=== PATIENT | male | born 1965 | race Caucasian/White ===

== ENCOUNTER 2017-07-14 19:25 | Emergency (ER) | payer OTHER ==
--- NOTE | 2017-07-14 21:21 | RAD REPORT ---
EXAM DESCRIPTION: CT - Head Brain Wo Cont - 07/14/2017 9:03 pm CLINICAL HISTORY: Dizziness, headache COMPARISON: None. TECHNIQUE: Axial 5 mm thick images of the head were obtained without IV contrast. All CT scans are performed using dose optimization technique as appropriate and may include automated exposure control or mA/KV adjustment according to patient size. FINDINGS: No intracranial hemorrhage, mass, edema or shift of mid-line structures. No abnormal extra -axial fluid collections. Ventricles are normal. Mastoid air cells and visualized portions of the paranasal sinuses are clear. No acute bony findings. IMPRESSION: Negative non-contrast CT head examination.
[2017-07-14] MEDS ORDERED: DIPHENHYDRAMINE 50 MG/ML VIAL ONE (21:23)
--- NOTE | 2017-07-14 21:24 | RAD REPORT ---
EXAM DESCRIPTION: RAD - Chest Single View - 07/14/2017 9:10 pm CLINICAL HISTORY: Weakness, declining state COMPARISON: None. TECHNIQUE: AP portable chest image was obtained 8 hours . FINDINGS: Lungs are clear. Heart and vasculature are normal. No measurable pleural effusion and no p neumothorax. No gross bony abnormality seen. No acute aortic findings suspected. IMPRESSION: No acute cardiopulmonary process.
[2017-07-14 21:30] LABS: Absolute Lymphocytes (CBC) 3.9 K/uL (0.7-4.9); Absolute Monocytes 1.1 K/uL (0.1-1.3); Absolute Neutrophil 6.3 K/uL (1.8-8.0); Basophils % 1.2 % (0-1.3); Eosinophils % 1.4 % (0-4.4); Hematocrit 43.6 % (39.6-49.0); Lymphocytes % 33.4 % (15.3-44.8); MCH 26.2 pg (27.0-35.0); MCV 77.7 fL (80-100); MPV 8.6 fL (7.6-11.3); Monocytes % 9.4 % (3.3-12.3); RBC Red Blood Cell Count 5.62 M/uL (4.33-5.43)
[2017-07-14 21:42] LABS: Bicarbonate 28 mEq/L (21-31); Glucose Level 108 mg/dL (65-120); Potassium 3.6 mEq/L (3.6-5.0); Sodium Level 139 mEq/L (135-145)
[2017-07-14 21:44] LABS: Protime INR 1.04
[2017-07-14 21:48] LABS: ALT/SGPT 29 IU/L (10-60); AST/SGOT 28 IU/L (10-42); Alkaline Phosphatase 62 IU/L (42-121); BUN Blood Urea Nitrogen 17 mg/dL (6-20); Bilirubin Direct < 0.1 mg/dL (0-0.2); Bilirubin Total 0.5 mg/dL (0.3-1.2); Magnesium 2.3 mg/dL (1.8-2.5); Protein, Total 7.3 g/dL (6.0-8.3)
--- NOTE | 2017-07-14 22:53 | ER ---
Nurse's Notes [facility] Name: Ernie Whitlock Age: 52 yrs Sex: Male : 1965 Arrival Date: 07/14/2017 Time: 19:30 Bed 14 Private MD: Diagnosis: Benign paroxysmal vertigo, unspecified ear Presentation: 07/14 20:28 Presenting complaint: Patient states: dizziness for the past 3 days that has been aj1 getting progressively worse. "I feel like everything is spinning like when you've had too much to drink,but I haven't been drinking.: Reports vertigo, nausea, and headache. Denies hitting head, syncope, vomiting, blurred vision, numbness, and tingling. Denies CP. Transition of care: patient was not received from another setting of care. Onset of symptoms was July 10, 2017. Initial Sepsis Screen: Does the patient meet any 2 criteria? No. Patient's initial sepsis screen is negative. Does the patient have a suspected source of infection? No. Patient's initial sepsis screen is negative. Care prior to arrival: None. 20:28 Method Of Arrival: Ambulatory aj1 20:28 Acuity: JOHNNY 3 aj1 Triage Assessment: 20:31 General: Appears in no apparent distress. uncomfortable, Behavior is calm, cooperative, aj1 appropriate for age. Pain: Denies pain. Historical: - Allergies: 20:31 No Known Allergies; aj1 - Home Meds: 20:31 None [Active]; aj1 - PMHx: 20:31 GERD; aj1 - PSHx: 20:31 None; aj1 - Immunization history:: Adult Immunizations Flu vaccine is not up to date. - Social history:: Smoking status: Patient/guardian denies using tobacco. Screenin:33 Abuse screen: Denies threats or abuse. Denies injuries from another. Nutritional aj1 screening: No deficits noted. Tuberculosis screening: No symptoms or risk factors identified. 23:21 Fall Risk None identified. bb Assessment: 20:33 General: Appears in no apparent distress. uncomfortable, Behavior is calm, cooperative, aj1 appropriate for age. Pain: Denies pain. Neuro: Level of Consciousness is awake, alert, obeys commands, Oriented to person, place, time, situation, Manpower Development Manager are equal bilaterally Moves all extremities. Full function Gait is steady, Speech is normal, Facial symmetry appears normal, Pupils are PERRLA, Intact Reports dizziness, headache nausea. Denies weakness blurred vision paresthesias numbness photophobia. Cardiovascular: Patient's skin is warm and dry. Respiratory: Airway is patent Respiratory effort is even, unlabored, Respiratory pattern is regular, symmetrical, Breath sounds are clear bilaterally. GI: No signs and/or symptoms were reported involving the gastrointestinal system. : No signs and/or symptoms were reported regarding the genitourinary system. EENT: No signs and/or symptoms were reported regarding the EENT system. Derm: No signs and/or symptoms reported regarding the dermatologic system. Musculoskeletal: No signs and/or symptoms reported regarding the musculoskeletal system. Circulation, motion, and sensation intact. 21:51 Reassessment: Patient appears in no apparent distress at this time. No changes from aj1 previously documented assessment. Patient and/or family updated on plan of care and expected duration. Pain level reassessed. Patient is alert, oriented x 3, equal unlabored respirations, skin warm/dry/pink. 23:19 Reassessment: Patient and/or family updated on plan of care and expected duration. Pain bb level reassessed. Patient is alert, oriented x 3, equal unlabored respirations, skin warm/dry/pink. pt states dizziness has improved, verbalized understanding of and agrees to plan of care discharge instructions given pt ambulated with steady gait to exit accompanied by spouse. Vital Signs: 20:31 BP 123 / 75; Pulse 78; Resp 20; Temp 97.6(O); Pulse Ox 96% on R/A; Weight 108.86 kg; aj1 Height 5 ft. 11 in. (180.34 cm); Pain 0/10; 21:51 BP 122 / 93; Pulse 65; Resp 12; Pulse Ox 99% on R/A; aj1 23:20 BP 127 / 76; Pulse 68; Resp 18 S; Temp 97.8(O); Pulse Ox 96% on R/A; Pain 0/10; bb 20:31 Body Mass Index 33.47 (108.86 kg, 180.34 cm) aj1 ED Course: 19:30 Patient arrived in ED. am2 20:28 Afshan Briones, RN is Primary Nurse. aj1 20:31 Triage completed. aj1 20:31 Arm band placed on. aj1 20:33 Patient has correct armband on for positive identification. aj1 20:33 No provider procedures requiring assistance completed. aj1 20:34 Vinh Fabian MD is Attending Physician. 21:[address] via wheelchair. ca 21:03 CT Head Brain wo Cont In Process Unspecified. EDMS 21:08 X-ray completed. Patient tolerated procedure well. Patient moved back from radiology. ag1 21:09 XRAY Chest (1 view) In Process Unspecified. EDMS 22:52 Brunilda Mendez MD is Referral Physician. gs 22:52 Matthias Cevallos MD is Referral Physician. gs 23:21 IV discontinued, intact, bleeding controlled, No redness/swelling at site. Pressure bb dressing applied. Administered Medications: 21:38 Drug: Benadryl 25 mg Route: IVP; Site: right antecubital; aj1 23:19 Follow up: Response: Marked relief of symptoms bb Outcome: 22:53 Discharge ordered by MD. 23:21 Discharged to home ambulatory, with family. bb 23:21 Condition: stable 23:21 Discharge instructions given to patient, family, Instructed on discharge instructions, follow up and referral plans. no driving heavy equipment, medication usage, Demonstrated understanding of instructions, follow-up care, medications, Prescriptions given X 1. 23:22 Patient left the ED. bb Signatures: Dispatcher [employer] Afshan John, RN ELEANOR aj1 Rosemary Kasper RN RN bb [place], Ashley ag1 Danielito Stout Amanda am2 Vinh Fabian MD MD
--- NOTE | 2017-07-14 22:53 | EDPHYS ---
Physician Documentation [facility] Name: Ernie Whitlock Age: 52 yrs Sex: Male : 1965 Arrival Date: 07/14/2017 Time: 19:30 Bed 14 Private MD: ED Physician Vinh Fabian HPI: 07/14 22:43 This 52 yrs old Male presents to ER via Ambulatory with complaints of gs Dizziness. 22:43 The patient presents with dizziness, sense of spinning. Onset: The symptoms/episode gs began/occurred 3 day(s) ago, and became persistent. Context: occurred at home. Modifying factors: the symptoms are aggravated by movement of head, standing up, changing position. Associated signs and symptoms: Pertinent positives: nausea. Severity of symptoms: At their worst the symptoms were moderate in the emergency department the symptoms are unchanged. The patient has not experienced similar symptoms in the past. Historical: - Allergies: 20:31 No Known Allergies; aj1 - Home Meds: 20:31 None [Active]; aj1 - PMHx: 20:31 GERD; aj1 - PSHx: 20:31 None; aj1 - Immunization history:: Adult Immunizations Flu vaccine is not up to date. - Social history:: Smoking status: Patient/guardian denies using tobacco. ROS: 22:43 All other systems are negative. gs Exam: 22:43 Head/Face: Normocephalic, atraumatic. Eyes: Pupils equal round and reactive to light, gs extra-ocular motions intact. Lids and lashes normal. Conjunctiva and sclera are non-icteric and not injected. Cornea within normal limits. Periorbital areas with no swelling, redness, or edema. ENT: Nares patent. No nasal discharge, no septal abnormalities noted. Tympanic membranes are normal and external auditory canals are clear. Oropharynx with no redness, swelling, or masses, exudates, or evidence of obstruction, uvula midline. Mucous membranes moist. Neck: Trachea midline, no thyromegaly or masses palpated, and no cervical lymphadenopathy. Supple, full range of motion without nuchal rigidity, or vertebral point tenderness. No Meningismus. Chest/axilla: Normal chest wall appearance and motion. Nontender with no deformity. No lesions are appreciated. Cardiovascular: Regular rate and rhythm with a normal S1 and S2. No gallops, murmurs, or rubs. Normal PMI, no JVD. No pulse deficits. Respiratory: Lungs have equal breath sounds bilaterally, clear to auscultation and percussion. No rales, rhonchi or wheezes noted. No increased work of breathing, no retractions or nasal flaring. Abdomen/GI: Soft, non-tender, with normal bowel sounds. No distension or tympany. No guarding or rebound. No evidence of tenderness throughout. Back: No spinal tenderness. No costovertebral tenderness. Full range of motion. Skin: Warm, dry with normal turgor. Normal color with no rashes, no lesions, and no evidence of cellulitis. MS/ Extremity: Pulses equal, no cyanosis. Neurovascular intact. Full, normal range of motion. 22:43 Constitutional: The patient appears alert, awake. 22:43 Constitutional: The patient appears in no acute distress. 22:43 ECG was reviewed by the Attending Physician. 22:43 Neuro: Orientation: is normal, Mentation: is normal, Memory: is normal, Cranial nerves: CN II- XII are normal as tested, Nystagmus is absent. Cerebellar function: is grossly normal, normal finger to nose testing, heel to gilmore testing is normal, Motor: Sensation: is normal, Gait: is steady, without difficulty. Vital Signs: 20:31 BP 123 / 75; Pulse 78; Resp 20; Temp 97.6(O); Pulse Ox 96% on R/A; Weight 108.86 kg; aj1 Height 5 ft. 11 in. (180.34 cm); Pain 0/10; 21:51 BP 122 / 93; Pulse 65; Resp 12; Pulse Ox 99% on R/A; aj1 23:20 BP 127 / 76; Pulse 68; Resp 18 S; Temp 97.8(O); Pulse Ox 96% on R/A; Pain 0/10; bb 20:31 Body Mass Index 33.47 (108.86 kg, 180.34 cm) aj1 MDM: 20:49 Patient medically screened. gs 22:43 Differential diagnosis: cardiac arrhythmia, generalized weakness, vertigo. Data gs reviewed: vital signs, nurses notes, and as a result, I will discharge patient. Response to treatment: the patient's symptoms have mildly improved after treatment, and as a result, I will discharge patient. 07/14 20:51 Order name: Basic Metabolic Panel; Complete Time: :54 07/14 20:51 Order name: CBC with Diff; Complete Time: :54 07/14 20:51 Order name: LFT's; Complete Time: :54 07/14 20:51 Order name: Magnesium; Complete Time: 21:54 07/14 20:51 Order name: PT-INR; Complete Time: :54 07/14 20:51 Order name: Troponin (emerg Dept Use Only); Complete Time: :54 07/14 20:51 Order name: XRAY Chest (1 view); Complete Time: :54 07/14 20:51 Order name: EKG; Complete Time: :52 07/14 20:51 Order name: Cardiac monitoring; Complete Time: 21: 07/14 20:51 Order name: EKG - Nurse/Tech; Complete Time: 22:11 07/14 20:51 Order name: IV Saline Lock; Complete Time: 21: 07/14 20:51 Order name: Labs collected and sent; Complete Time: 21: 07/14 20:51 Order name: CT Head Brain wo Cont; Complete Time: :54 07/14 20:51 Order name: O2 Per Protocol; Complete Time: 21: 07/14 20:51 Order name: O2 Sat Monitoring; Complete Time: 21:07 gs EC:43 Rate is 71 beats/min. Rhythm is regular. TN interval is normal. QRS interval is normal. gs T waves are Normal. No ST changes noted. Clinical impression: Normal ECG. Interpreted by me. Administered Medications: 21:38 Drug: Benadryl 25 mg Route: IVP; Site: right antecubital; aj1 23:19 Follow up: Response: Marked relief of symptoms bb Disposition: 07/14/17 22:53 Discharged to Home. Impression: Benign paroxysmal vertigo, unspecified ear. - Condition is Stable. - Discharge Instructions: Benign Positional Vertigo, Dizziness. - Prescriptions for Valium 5 mg Oral Tablet - take 1 tablet by ORAL route every 8 hours As needed; 20 tablet. - SBAR form, Medication Reconciliation Form, Thank You Letter, Antibiotic Education, Prescription Opioid Use form. - Follow up: Brunilda Mnedez MD; When: 2 - 3 days; Reason: Re-evaluation by your physician. Follow up: Matthias Cevallos MD; When: 2 - 3 days; Reason: Re-evaluation by your physician. Signatures: Dispatcher [employer] Afshan John RN RN aj1 Rosemary Kasper RN RN bb Vinh Fabian MD MD gs
--- NOTE | 2017-07-15 09:15 | EKG ---
Test Date: 2017-07-14 Test Time: 21:23:26 Coal Sampler: HERRERA MEASUREMENT RESULTS: Intervals: Rate: 71 [place]: 166 QRSD: 96 QT: 364 QTc: 395 [place]: P: 46 WV: 166 QRS: 0 T: 24 INTERPRETIVE STATEMENTS: Normal sinus rhythm Normal ECG No previous ECG available for comparison Electronically Signed On 07-15-17 09:13:51 CDT by Brady Velásquez
== END 2017-07-14 23:22 | disposition home or self-care (01) ==
LOC: ER 19:25
DX: H81.10 Benign paroxysmal vertigo, unspecified ear (principal)
CPT/HCPCS: 36415; 70450; 71045; 80048; 80076; 83735; 84484; 85025; 85610; 93005; 96374; 99284

== ENCOUNTER 2017-08-20 07:51 | Day surgery (SDC) | payer OTHER ==
--- OUTSIDE RECORDS SUMMARY | 2017-08-20 07:52 | XMS REPORT ---
:1965 Author Organization [employer] Care Team Providers Name Role Phone Gwen Messerh Provider Role Unavailable Allergies, Adverse Reactions, Alerts Substance Reaction Event Type N.K.D.A. Info Not Available Non Drug Allergy Problems Problem Type Condition Code Onset Dates Condition Status Problem Mild intermittent asthma, J45.20 Active unspecified whether complicated Assessment Encounter for preventative adult Z00.00 Active health care examination Problem Biliary calculus of other site K80.80 Active without obstruction Assessment Screening for colon cancer Z12.11 Active Medications No Known Medications Results No Known Results Summary Purpose [employer] Submission
--- OUTSIDE RECORDS SUMMARY | 2017-08-20 07:52 | XMS REPORT ---
:1965 Author Organization [employer] Care Team Providers Name Role Phone ChesterSundar Provider Role Unavailable Allergies, Adverse Reactions, Alerts Substance Reaction Event Type N.K.D.A. Info Not Available Non Drug Allergy Problems Problem Type Condition Code Onset Dates Condition Status Problem Mild intermittent asthma, J45.20 Active unspecified whether complicated Assessment Encounter for screening colonoscopy Z12.11 Active Problem Biliary calculus of other site K80.80 Active without obstruction Medications Medication Code System Code Instructions Start Date End Date Status Dosage Diazepam [facility] [id number] 5 MG Rectal Active not defined -60 Results No Known Results Summary Purpose [employer] Submission
[2017-08-20] MEDS ORDERED: Ringers Lactate 1,000 ML IV ONE (08:23)
[2017-08-20] MEDS ORDERED: PROPOFOL 200 MG/20 ML VIAL IV ONE (10:13)
--- NOTE | 2017-08-20 11:00 | ENDO RPT ---
[address], [address] COLONOSCOPY PROCEDURE REPORT EXAM DATE: 08/20/2017 PATIENT NAME: Ernie Whitlock MR #: [id number] BIRTHDATE: 1965 ATTENDING: Sundar Briggs DR STATUS: outpatient SILVICULTURE FORESTER: Sally Pressley, Swati Taylor RN, and Darryl Pressley INDICATIONS: The patient is a 52 yr old Male here for a colonoscopy due to colon cancer screening PROCEDURE PERFORMED: Colonoscopy with biopsy - cold polypectomy MEDICATIONS: Per Anesthesia. ESTIMATED BLOOD LOSS: None CONSENT: The patient understands the risks and benefits of the procedure and understands that these risks include, but are not limited to: sedation, allergic reaction, infection, perforation and/or bleeding. Alternative means of evaluation and treatment include, among others: physical exam, x-rays, and/or surgical intervention. The patient elects to proceed with this endoscopic procedure. DESCRIPTION OF PROCEDURE: During intra-op preparation period all mechanical medical equipment was checked for proper function. Hand hygiene and appropriate measures for infection prevention was taken. Procedure, possible complications, alternatives including, but not limited to possibility of bleeding, perforation, tear, infection, sepsis, need for surgery, need for blood transfusion, were explained to the patient. After the risks, benefits and alternatives of the procedure were thoroughly explained, Informed consent was verified, confirmed and timeout was successfully executed by the treatment team. The patient was placed in the left lateral position. A digital rectal exam was performed and revealed no abnormalities of the rectum. After appropriate level of anesthesia, the scope was passed. The EC-[id number] ([id number]) endoscope was introduced through the anus and advanced to the cecum, which was identified by both the appendix and ileocecal valve. The quality of the prep was poor. The instrument was then slowly withdrawn as the colon was fully examined. Scope withdrawal time was 10 minutes. COLON FINDINGS: A small smooth and polypoid shaped pedunculated polyp with a friable surface was found in the right colon. A biopsy was performed using cold forceps. Sample was obtained and sent to histology. Was found petechiae and in the distal transverse colon. A biopsy was performed using cold forceps. Retroflexed views revealed no abnormalities. The scope was then completely withdrawn from the patient and the procedure terminated. ADVERSE EVENTS: There were no complications. IMPRESSIONS: 1. Small pedunculated polyp was found in the right colon; biopsy was performed using cold forceps 2. Petechiae and in the distal transverse colon; biopsy was performed using cold forceps RECOMMENDATIONS: 1. avoid NSAIDS for 2 weeks 2. await biopsy results 3. fiber rich diet 4. follow-up: office 2 week(s) RECALL: Return in 5 year(s) for Colonoscopy, pending biopsy results. Sundar Briggs DR eSigned: Sundar Briggs DR 08/20/2017 10:59 AM cc: CPT CODES: ICD9 CODES: PATIENT NAME: Ernie Whitlock MR#: [id number]
== END 2017-08-20 11:28 | disposition home health service (06) ==
LOC: OR 07:51
PROVIDERS: ATTEND Surgery
PROC: 0DBL8ZX Excision of Transverse Colon, Via Natural or Artificial Opening Endoscopic, Diagnostic (ICD-10-PCS; 2017-08-20)
PROC: 0DBF8ZX Excision of Right Large Intestine, Via Natural or Artificial Opening Endoscopic, Diagnostic (ICD-10-PCS; principal; 2017-08-20 10:00)
DX: Z12.11 Encounter for screening for malignant neoplasm of colon (principal); D12.2 Benign neoplasm of ascending colon; G47.33 Obstructive sleep apnea (adult) (pediatric); E66.9 Obesity, unspecified; Z80.1 Family history of malignant neoplasm of trachea, bronchus and lung; Z82.49 Family history of ischemic heart disease and other diseases of the circulatory system
CPT/HCPCS: 88305

== ENCOUNTER 2020-02-16 08:11 | Day surgery (SDC) | payer BC ==
[2020-02-09 14:20] LABS: Absolute Lymphocytes (CBC) 3.3 K/uL (0.7-4.9); Basophils % 0.6 % (0-1.3); Hematocrit 45.8 % (39.6-49.0); Lymphocytes % 31.4 % (15.3-44.8); MPV 8.6 fL (7.6-11.3); RBC Red Blood Cell Count 5.73 M/uL (4.33-5.43)
[2020-02-09 14:29] LABS: Protime INR 0.95
[2020-02-09 14:34] LABS: Potassium 4.1 mmol/L (3.5-5.1)
--- NOTE | 2020-02-09 14:38 | RAD REPORT ---
EXAM DESCRIPTION: RAD - Chest Pa And Lat (2 Views) - 02/09/2020 2:32 pm CLINICAL HISTORY: preop Chest pain. COMPARISON: Chest Single View dated 07/14/2017 FINDINGS: The lungs are clear. The heart is upper limit of normal in size. No displaced fractures.
--- NOTE | 2020-02-11 07:45 | EKG ---
Test Date: 2020-02-09 Test Time: 13:56:14 Button Buttonhole Marker: MARCO MEASUREMENT RESULTS: Intervals: Rate: 57 [place]: 168 QRSD: 98 QT: 364 QTc: 354 [place]: P: 48 [place]: 168 QRS: 2 T: 23 INTERPRETIVE STATEMENTS: Sinus bradycardia Otherwise normal ECG Compared to ECG 07/14/2017 21:23:26 Sinus rhythm no longer present Electronically Signed On 02-11-20 07:41:08 COMMUNICATIONS PROJECT LEAD by Brady Velásquez
--- OUTSIDE RECORDS SUMMARY | 2020-02-16 08:46 | XMS REPORT ---
:1965 Author Organization [employer] Care Team Providers Name Role Phone Chacorta Phillips Provider Role Unavailable Allergies No Known Allergies Problems Problem Type Condition Code Onset Dates Condition Statu s Problem Acute gout of right foot, M10.9 Ac tive unspecified cause Problem Adult BMI 32.0-32.9 kg/sq m Z68.32 Active Problem Gout of right foot, unspecified M10.9 Active cause, unspecified chronicity Problem Other chronic pain G89.29 Active Problem Left carpal tunnel syndrome G56.02 Active Problem Carpal tunnel syndrome G56.00 Activ e Problem Sleep apnea, unspecified type G47.30 Active Problem TYRONE (obstructive sleep apnea) G47.33 Active Problem Osteoarthritis of hand, unspecified M19.049 Active laterality, unspecified osteoarthritis type Problem Vitamin D deficiency disease E55.9 Active Problem Mild intermittent asthma, J45.20 Ac tive unspecified whether complicated Problem Biliary calculus of other site K80.80 Active without obstruction Assessment Radiculopathy, cervical region M54.12 Active Problem Mixed hyperlipidemia E78.2 Active Medications No Known Medications Results No Known Results Summary Purpose [employer] Submission
--- OUTSIDE RECORDS SUMMARY | 2020-02-16 08:46 | XMS REPORT ---
:1965 Author Organization [employer] Care Team Providers Name Role Phone Anurag Messer Provider Role Unavailable Allergies No Known Allergies Problems Problem Type Condition Code Onset Dates Condition Statu s Problem Mixed hyperlipidemia E78.2 Active Problem Adult BMI 32.0-32.9 kg/sq m Z68.32 Active Problem Acute gout of right foot, M10.9 Ac tive unspecified cause Problem Mild intermittent asthma, J45.20 Ac tive unspecified whether complicated Problem Biliary calculus of other site K80.80 Active without obstruction Problem Left carpal tunnel syndrome G56.02 Active Problem Osteoarthritis of hand, unspecified M19.049 Active laterality, unspecified osteoarthritis type Problem Other chronic pain G89.29 Active Problem Sleep apnea, unspecified type G47.30 Active Problem Gout of right foot, unspecified M10.9 Active cause, unspecified chronicity Problem Vitamin D deficiency disease E55.9 Active Problem TYRONE (obstructive sleep apnea) G47.33 Active Medications No Known Medications Results No Known Results Summary Purpose [employer] Submission
--- OUTSIDE RECORDS SUMMARY | 2020-02-16 08:46 | XMS REPORT | Continuity of Care Document ---
:1965 Author Organization [facility] t Address [address] [place] [address] Care Team Providers Name Role Phone Ivonne LEONARDO Attending Clinician DR HAO Attending Clinician Unavailable DR HAO Admitting Clinician Unavailable Problems This patient has no known problems. Allergies, Adverse Reactions, Alerts This patient has no known allergies or adverse reactions. Medications Ordered Filled Start Stop Current Ordering Indication Dosage Frequency Signature Comments Components Source Medication Medication Date Date Medication? Clinician (SIG) Name Name Tramadol Tramadol Yes Chacorta [address] [facility] 4-17 [facility] ProAir HFA ProAir HFA Yes Chacorta [address] [facility] 9-24 [facility] Allopurinol Allopurinol Yes Chacorta take [address] [facility] Procedures This patient has no known procedures. Encounters Start End Encounter Admission Attending Care Care Encounter Source Date/Time Date/Time Type Type Clinicians Facility Department ID 2020-02-12 2020-02-12 Outpatient [facility] [id number] [facility] 2020-02-07 2020-02-07 Outpatient [facility] [id number] [facility] 2020-02-05 2020-02-05 [facility] [id number] [facility] 2020-02-02 2020-02-02 [facility] [id number] [facility] 2020-01-29 2020-01-29 [facility] [id number] [facility] 2020-01-19 2020-01-19 [facility] [id number] [facility] 2020-01-16 2020-01-16 [facility] [id number] [facility] 2020-01-12 2020-01-12 [facility] [id number] [facility] 2020-01-05 2020-01-05 [facility] [id number] [facility] 2020-01-05 2020-01-05 [facility] [id number] [facility] 2019-12-25 2019-12-25 [facility] [id number] [facility] 2019-12-19 2019-12-19 [facility] [id number] [facility] 2019-12-11 2019-12-11 [facility] [id number] [facility] 09:53:00 09:53:00 [facility] 2019-12-08 2019-12-08 [facility] [id number] [facility] 10:30:00 10:30:00 [facility] 2019-12-01 2019-12-01 [facility] [id number] [address] 11:41:00 11:41:00 t [employer] [facility] 2019-11-30 2019-11-30 [facility] [id number] 08:00:00 08:00:00 t [employer] [facility] 2019-11-16 2019-11-16 [facility] [id number] 13:59:00 13:59:00 t [employer] [facility] Clinics 2019-11-07 2019-11-07 [facility] [id number] 09[facility]43:00 09:43:00 [facility] ent Clinics 2019-10-20 2019-10-20 [facility] [id number] 10:30:00 10:30:00 t [employer] [facility] Clinics 2019-09-15 2019-09-15 [facility] [id number] [address] 10:15:00 10:15:00 t [place] [facility] 2019-08-23 2019-08-23 Office [place], BCM [id number] 09:31:04 10:16:04 Visit [facility]ATOR [id number] 2019-08-07 2019-08-07 [facility] [id number] 10:17:00 10:17:00 t [employer] [facility] 2019-07-17 2019-07-17 [facility] [id number] 14:17:00 14:17:00 [place] [employer] s - Drive [facility] Medicine Outpati ent Clinics 2019-07-14 2019-07-14 [facility] [id number] [facility] 09:30:00 09:30:00 [place] [employer] s - Drive [facility] Medicine Outpati ent Clinics 2019-07-13 2019-07-13 [facility] [id number] 10:49:00 10:49:00 t [place] [employer] s - Drive [facility] Medicine Outpati ent Clinics 2019-06-16 2019-06-16 [facility] [id number] 10:30:00 10:30:00 [place] [employer] s - Drive [facility] Medicine Outpati ent Clinics 2019-03-17 2019-03-17 [facility] [id number] 10:15:00 10:15:00 t [place] [employer] - [employer] [facility] Medicine Outpati ent Clinics 2019-03-03 2019-03-03 [facility] [id number] 15:26:00 15:26:00 t [place] [employer] - [employer] [facility] Medicine Outpati ent Clinics 2018-12-20 2018-12-20 [facility] [id number] 13:00:00 13:00:00 t [place] [employer] s - [employer] [facility] Medicine Outpati ent Clinics 2018-06-07 2018-06-07 [facility] [id number] 09:18:00 09:18:00 t [place] [employer] s - Drive [facility] Medicine Outpati ent Clinics 2018-05-31 2018-05-31 [facility] [id number] 14:30:00 14:30:00 t [place] [employer] s - Drive [facility] Medicine Outpati ent Clinics 2017-09-10 2017-09-10 Outpatient Tabitha BUI Tabitha [facility] [id number] 04:13:00 06:10:00 [facility] 2017-09-06 2017-09-06 [facility] [id number] 13:45:00 13:45:00 t [employer] [facility] Outpati ent Clinics 2017-08-27 2017-08-27 [facility] [id number] 09:00:00 09:00:00 t [employer] [facility] Outpat[facility] ent Clinics 2017-08-25 2017-08-25 [facility] [id number] 09:16:00 09:16:00 t [employer] [facility] Outpati ent Clinics 2017-08-05 2017-08-05 [facility] [id number] 15:00:00 15:00:00 t Specialty/U Vanna kes - Specialty rology [facility] a [facility] l Clinic Outpati ent Clinics 2017-07-27 2017-07-27 [facility] [id number] 09:15:00 09:15:00 t [employer] [facility] Results This patient has no known results.
--- OUTSIDE RECORDS SUMMARY | 2020-02-16 08:46 | XMS REPORT ---
:1965 Author Organization [employer] Care Team Providers Name Role Phone Phillips Chacorta Provider Role Unavailable Allergies, Adverse Reactions, Alerts [...] Problem Vitamin D deficiency disease E55.9 Active Assessment Carpal tunnel syndrome G56.00 Activ e Problem Mild intermittent asthma, J45.20 Ac tive unspecified whether complicated Assessment Radiculopathy, cervical region M54.12 Active Problem Biliary calculus of other site K80.80 Active without obstruction Assessment Pain in joint of left wrist M25.532 Active Problem Mixed hyperlipidemia E78.2 Active Medications Medication Code Code Instructions Start End Date Status Dosage System Date Allopurinol [facility] 14023978832 300 MG Orally QD Active take 1 tab Tramadol HCl [facility] 19223917631 50 MG Orally July 13, Active 1 tablet Once a day PRN 2019 as needed SEVERE PAIN ProAir HFA [facility] 00722093953 108 (90 Base) Active 2 p uffs as MCG/ACT needed Inhalation every 6 hrs Results Name Result Date Reference Range Unit Abnormali ty Flag C Spine Ap/Lat Summary Purpose eClinicalWorks Submission
--- OUTSIDE RECORDS SUMMARY | 2020-02-16 08:46 | XMS REPORT ---
:1965 Author Organization [employer] Care Team Providers Name Role Phone Anurag Messer Provider Role Unavailable Allergies, Adverse Reactions, Alerts Substance Reaction Event Type N.K.D.A. Info Not Available Non Drug Allergy Problems Problem Type Condition Code Onset Dates Condition Statu s Problem Mixed hyperlipidemia E78.2 Active Problem Adult BMI 32.0-32.9 kg/sq m Z68.32 Active Problem Acute gout of right foot, M10.9 Ac tive unspecified cause Problem Left carpal tunnel syndrome G56.02 Active Assessment Adult BMI 32.0-32.9 kg/sq m Z68.32 Active Problem Osteoarthritis of hand, unspecified M19.049 Active laterality, unspecified osteoarthritis type Assessment Fatigue, unspecified type R53.83 Ac tive Assessment Noncompliance with CPAP treatment Z91.14 Active Problem Other chronic pain G89.29 Active Problem Sleep apnea, unspecified type G47.30 Active Problem Gout of right foot, unspecified M10.9 Active cause, unspecified chronicity Problem Vitamin D deficiency disease E55.9 Active Problem TYRONE (obstructive sleep apnea) G47.33 Active Assessment Mild intermittent asthma, J45.20 Ac tive unspecified whether complicated Assessment Osteoarthritis of hand, unspecified M19.049 Active laterality, unspecified osteoarthritis type Assessment TYRONE (obstructive sleep apnea) G47.33 Active Assessment Gout of right foot, unspecified M10.9 Active cause, unspecified chronicity Assessment Pain in left shoulder M25.512 Active Assessment Mixed hyperlipidemia E78.2 Active Problem Mild intermittent asthma, J45.20 Ac tive unspecified whether complicated Assessment Other chronic pain G89.29 Active Assessment Left carpal tunnel syndrome G56.02 Active Problem Biliary calculus of other site K80.80 Active without obstruction Medications Medication Code Code Instructions Start End Date Status Dosage System Date Tramadol HCl [facility] 29213934071 50 MG Orally July 13, Active 1 tablet Once a day PRN 2019 as needed SEVERE PAIN ProAir HFA [facility] 58086789199 108 (90 Base) Active 2 p uffs as MCG/ACT needed Inhalation every 6 hrs Allopurinol [facility] 36262593427 300 MG Orally QD Active take 1 tab Results No Known Results Summary Purpose eClinicalWorks Submission
--- OUTSIDE RECORDS SUMMARY | 2020-02-16 08:47 | XMS REPORT ---
:1965 Author Organization [facility] Address [address] [facility] [address] [place] [address] Care Team Providers Name Role Phone Phillips Unavailable [phone] PROBLEMS Type Condition ICD9-CM [id number] Onset Condition SNOMED Code Notes Code Code Dates Status Problem Mild intermittent J45.20 Active 727191184 asthma, unspecified whether complicated Problem Mixed E78.2 Active 577421628 hyperlipidemia Problem Biliary calculus K80.80 Active 604025120 of other site without obstruction Problem Gout of right M10.9 Active 173523797 foot, unspecified cause, unspecified chronicity Problem Acute gout of M10.9 Active 893652145 right foot, unspecified cause Problem TYRONE (obstructive G47.33 Active 02689929 sleep apnea) Problem Adult BMI Z68.32 Active 974482439 32.0-32.9 kg/sq m Problem Osteoarthritis of M19.049 Active 02792228 hand, unspecified laterality, unspecified osteoarthritis type Problem Cervical disc M50.20 Active 975106695 herniation Problem Erectile N52.9 Active 382532502 dysfunction, unspecified erectile dysfunction type Problem Arthrosis of first M18.9 Active 435786411 carpometacarpal joint Problem Vitamin D E55.9 Active 23089600 deficiency disease Problem Carpal tunnel G56.02 Active 065147703460453 syndrome of left wrist Problem Sleep apnea, G47.30 Active 93116737 unspecified type Problem Degenerative M50.30 Active 78152852 cervical disc Problem Left carpal tunnel G56.02 Active 1229647470251 02 syndrome Problem Other chronic pain G89.29 Active 96112754 Problem Carpal tunnel G56.00 Active 86647935 syndrome ALLERGIES No Known Allergies ENCOUNTERS from 1965 to 2020-02-12 Encounter Location Date Provider Diagnosis [facility] [address], [place] [address] IMMUNIZATIONS Vaccine Route Administration Date Status Kenalog (Triamcinolone) IM Intramuscular Nov 30, 2019 Adminis tered Kenalog (Triamcinolone) IM Intramuscular May 31, 2018 Adminis tered SOCIAL HISTORY Tobacco Use: Social History Observation Description Date Details (start date - stop date) Never Smoker Sex Assigned At : Social History Observation Description Sex Assigned At Male Depression Screening Question Answer Notes Over the past two weeks, has the PT felt down, depressed, or hopeless? No Over the past two weeks, has the PT felt little interest or pleasure in No doing things? Alcohol Screen Question Answer Notes Did you have a drink containing alcohol in the past Yes year? Points 1 Interpretation Negative How many drinks did you have on a typical day when 1 or 2 (0 points) you were drinking in the past year? How often did you have a drink containing alcohol in Monthly or less (1 point) the past year? Tobacco Use/Smoking Question Answer Notes Are you a never smoker Additional Findings: Tobacco Non-User Current non-smoker REASON FOR REFERRAL No Information VITAL SIGNS No information MEDICATIONS Medication SIG (Take, Route, Notes Start Date End Date Status Frequency, Duration) Ativan 0.5 MG 1 - 2 tabs prior to Jan, Active MRI Orally once for 1 days ProAir HFA 108 (90 2 puffs as needed Active Base) MCG/ACT Inhalation every 6 hrs for 30 days Tramadol HCl 50 MG 1 tablet as needed Jun, Not-Taking Orally Once a day PRN SEVERE PAIN Allopurinol 300 MG take 1 tab Orally QD Active for 90 days Tylenol # 3 300/30mg one tab PO 6HRS PRN Jan, 16 D 2019 Active PAIN for 30 days PROCEDURES No Information RESULTS No Results REASON FOR VISIT RX FOR SX MEDICAL (GENERAL) HISTORY Type Description Date Medical History Biliary calculus of other site without o bstruction Medical History Mild intermittent asthma, unspecified wh ether complicated Medical History Sleep apnea, unspecified type Surgical History Nose rhinoplasty 2006 Surgical History RIGHT HAND CARPAL TUNNEL RELEASE 2010 Goals Section No Information Health Concerns No Information MEDICAL EQUIPMENT No Information MENTAL STATUS No Information FUNCTIONAL STATUS No Information ASSESSMENTS No Information PLAN OF TREATMENT Medication Medication Name Sig Start Date Stop Date Tylenol # 3 300/30mg one tab PO 6HRS PRN PAIN for 30 days JanFeb, Next Appt Details Provider Name:Chacorta Phillips, 2020-02-26 1 0:30:00 AM, [address], [place], [address], Provider Name:Anuragtam Messer, 2020-04-19 0 9:50:00 AM, [address], [place], [address], Insurance Providers Payer Name Payer Payer Insured Name Patient Coverage Covera ge End Address Phone Relationship to Start Date Neto e Insured [employer] [phone] Ernie Whitlock self 2018 and Dash [id number] [address] [place] [phone]
--- OUTSIDE RECORDS SUMMARY | 2020-02-16 08:47 | XMS REPORT ---
:1965 Author Organization [facility] Address [address] [place] [address] Care Team Providers Name Role Phone Messer Unavailable [phone] PROBLEMS Type Condition ICD9-CM [id number] Onset Condition SNOMED Code Notes Code Code Dates Status Problem Mild intermittent J45.20 Active 009518261 asthma, unspecified whether complicated Problem Mixed E78.2 Active 991739921 hyperlipidemia Problem Biliary calculus K80.80 Active 257398146 of other site without obstruction Problem Gout of right M10.9 Active 596171941 foot, unspecified cause, unspecified chronicity Problem Acute gout of M10.9 Active right foot, unspecified cause Problem TYRONE (obstructive G47.33 Active 66985661 sleep apnea) Problem Adult BMI Z68.32 Active 855656187 32.0-32.9 kg/sq m Problem Osteoarthritis of M19.049 Active 69999810 hand, unspecified laterality, unspecified osteoarthritis type Problem Cervical disc M50.20 Active 149814606 herniation Problem Erectile N52.9 Active 966999788 dysfunction, unspecified erectile dysfunction type Problem Arthrosis of first M18.9 Active 510756988 carpometacarpal joint Problem Vitamin D E55.9 Active 51639481 deficiency disease Problem Carpal tunnel G56.02 Active 068557191033203 syndrome of left wrist Problem Sleep apnea, G47.30 Active 50328603 unspecified type Problem Degenerative M50.30 Active 27793892 cervical disc Problem Left carpal tunnel G56.02 Active 3504696198402 02 syndrome Problem Other chronic pain G89.29 Active 66723613 Problem Carpal tunnel G56.00 Active 71392680 syndrome ALLERGIES No Known Allergies ENCOUNTERS from 1965 to 2020-02-08 Encounter Location Date Provider Diagnosis [facility] [address], [place] [address] IMMUNIZATIONS Vaccine Route Administration Date Status Kenalog [...] No information MEDICATIONS Medication SIG (Take, Route, Start Date End Date Status Frequency, Duration) Ativan 0.5 MG 1 - 2 tabs prior to MRI Jan, Act bessy Orally once for 1 days Tramadol HCl 50 MG 1 tablet as needed Orally Jun, Not-Taking Once a day PRN SEVERE PAIN Allopurinol 300 MG take 1 tab Orally QD for Active 90 days ProAir HFA 108 (90 Base) 2 puffs as needed Active MCG/ACT Inhalation every 6 hrs for 30 days PROCEDURES No Information RESULTS No Results REASON FOR VISIT MRI Pituitary results MEDICAL (GENERAL) HISTORY Type Description Date Medical [...] Information ASSESSMENTS No Information PLAN OF TREATMENT Next Appt Details Provider Name:Chacorta Phillips 2020-02-26 1 0:30:00 AM, [address], [address], [place], [address], Provider Name:Anurag Messer, 2020-04-19 0 9:50:00 AM, [address], [address], [place], [address], Insurance Providers Payer Name Payer Payer Insured Name Patient Coverage Covera End Address Phone Relationship to Start Date Neto e Insured [employer] [phone] ChinyereErnie self 2018 and Blue [id number] [address] [place] [phone]
--- OUTSIDE RECORDS SUMMARY | 2020-02-16 08:47 | XMS REPORT ---
:1965 Author Organization [facility] Address [address] [facility] Mer[address] [place] [address] Care Team Providers Name Role Phone Phillips Unavailable [phone] PROBLEMS Type Condition ICD9-CM [id number] Onset Condition SNOMED Code Notes Code Code Dates Status Problem Mild intermittent J45.20 Active 212883963 asthma, unspecified whether complicated Problem Mixed E78.2 Active 330590729 hyperlipidemia Problem Biliary calculus K80.80 Active 634802540 of other site without obstruction Problem Gout of right M10.9 Active 449941277 foot, unspecified cause, unspecified chronicity Problem Acute gout of M10.9 Active 384543058 right foot, unspecified cause Problem TYRONE (obstructive G47.33 Active 72540286 sleep apnea) Problem Adult BMI Z68.32 Active 485376285 32.0-32.9 kg/sq m Problem Osteoarthritis of M19.049 Active 93766695 hand, unspecified laterality, unspecified osteoarthritis type Problem Cervical disc M50.20 Active 975720164 herniation Problem Erectile N52.9 Active 655629425 dysfunction, unspecified erectile dysfunction type Problem Arthrosis of first M18.9 Active 314810727 carpometacarpal joint Problem Vitamin D E55.9 Active 45392460 deficiency disease Problem Carpal tunnel G56.02 Active 785362498870055 syndrome of left wrist Problem Sleep apnea, G47.30 Active 54547341 unspecified type Problem Degenerative M50.30 Active 20222882 cervical disc Problem Left carpal tunnel G56.02 Active 0627558704232 02 syndrome Problem Other chronic pain G89.29 Active 49451376 Problem Carpal tunnel G56.00 Active 13347399 syndrome ALLERGIES No Known Allergies ENCOUNTERS from 1965 to 2020-02-12 Encounter Location Date Provider Diagnosis [facility] [address], Chacorta Phillips Carp al tunnel syndrome [facility] [address] of left wris t G56.02 ; [place], [place] Radiculopathy, cervical [address] region M54.12 ; Arthrosis of fi rst carpometacarpal joint M18.9 and Left wrist pain M25.532 IMMUNIZATIONS Vaccine Route Administration Date Status Kenalog [...] REASON FOR REFERRAL No Information VITAL SIGNS Height 71 in Jan, Weight 248.8 lbs Jan, BMI 34.70 kg/m2 Jan, Blood pressure systolic 137 mm Hg Jan, Blood pressure diastolic 75 mm Hg Jan, MEDICATIONS Medication SIG (Take, Route, Notes Start [...] Information RESULTS No Results REASON FOR VISIT left hand pain- discuss sx MEDICAL (GENERAL) HISTORY Type Description Date Medical [...] No Information FUNCTIONAL STATUS No Information ASSESSMENTS Encounter Date Diagnosis Assessment Notes Treatment Notes Treatm ent Clinical Notes Jan, Carpal tunnel -patient has failed syndrome of left conservative wrist (ICD-10 - treatment measures G56.02) and has symptoms that interfere with ADLs -proceed with left carpal tunnel release -discussed risks and benefits associated with the surgery and he expressed understanding -will proceed with surgery next week Jan, Radiculopathy, -no significant cervical region left sided (ICD-10 - M54.12) foraminal impingment noted on MRI -continue to monitor symptoms Jan, Arthrosis of first -continue with carpometacarpal joint conservative (ICD-10 - M18.9) treatment measu res -will discuss corticosteroid injection after surgery if his pain continues Jan, Left wrist pain (ICD-10 - M25.532) PLAN OF TREATMENT Medication Medication Name Sig Start Date Stop Date Tylenol # 3 300/30mg one tab PO 6HRS PRN PAIN for 30 days JanFeb, Treatment Notes Assessment Notes Clinical Notes Carpal tunnel syndrome of left wrist -patient has failed con servative treatment measures and has symptoms that interfere with ADLs-proceed with left carpal tunnel release-discussed risks and benefits associated with the surgery and he expressed understanding-will proceed with surgery next week Radiculopathy, cervical region -no significant left sided foraminal impingment noted on MRI-continue to monitor symptoms Arthrosis of first carpometacarpal -continue with conservati ve joint treatment measures-will discuss corticosteroid injection after surgery if his pain continues Next Appt Details 1 Week post op Reason: Provider Name:Chacorta Phillips 2020-02-26 1 0:30:00 AM, [address], [address], [place], [address], Provider Name:Anurag Messer, 2020-04-19 0 9:50:00 AM, [address], [address], [place], [address], Insurance Providers Payer Name Payer Payer Insured Name Patient Coverage Covera End Address Phone Relationship to Start Date Neto e Insured [employer] [phone] Ernie Whitlock self 2018 and Dash [id number] [address] [place] [phone]
[2020-02-16] MEDS ORDERED: ONDANSETRON 4 MG/2 ML VIAL ONE (08:50)
[2020-02-16] MEDS ORDERED: LIDOCAINE 2% MPF 5 ML VIAL ONE (08:50)
[2020-02-16] MEDS ORDERED: FENTANYL CITR 100 MCG/2 ML ONE (08:50)
[2020-02-16] MEDS ORDERED: propofoL 200 MG/20 ML VIAL IV ONE ×2 (08:50→12:13)
[2020-02-16] MEDS ORDERED: NS 0.9% VIAL 30 ML ONE (08:50)
[2020-02-16] MEDS ORDERED: KETOROLAC 30 MG/ML INJ ONE (08:50)
[2020-02-16] MEDS ORDERED: MIDAZOLAM HCL 2 MG/2 ML INJ ONE (08:50)
[2020-02-16] MEDS ORDERED: CEFAZOLIN/SWI 1gm 1 GM/10 ML SYR ONE (08:51)
[2020-02-16] MEDS ORDERED: Ringers Lactate 1,000 ML IV ONE ×2 (08:51→12:16)
[2020-02-16] MEDS ORDERED: LIDOCAINE 1% MPF 30 ML VIAL ONE (08:51)
[2020-02-16 09:14] VITALS: TEMP 97.7
[2020-02-16] MEDS: BUPIVACAINE 0.25% PF 10 ML VIAL ONE ×2 (12:03→12:14)
--- NOTE | 2020-02-16 12:24 | P.BOP ---
Preoperative diagnosis: left carpal tunnel syndrome Postoperative diagnosis: same Primary procedure: left open carpal tunnel release Medical Accountant: NONE,NONE Estimated blood loss: 3 cc Specimen: none Findings: see dictation Anesthesia: General Complications: None Implants: none Fluids & blood products: per anesthesia record Transferred to: Recovery Room Condition: Good
[2020-02-16] MEDS ORDERED: CODEINE 30MG/APAP 300MG TAB ONE (12:55)
[2020-02-16 15:02] VITALS: O2SAT 98
[2020-02-16 15:03] VITALS: BP 118/76
--- NOTE | 2020-02-17 00:39 | OP ---
Date of Procedure: 02/16/2020 Surgeon: Chacorta Phillips MD Preoperative Diagnosis: Left carpal tunnel syndrome. Postoperative Diagnosis: Left carpal tunnel syndrome. Procedure Performed: Left open carpal tunnel release. Anesthesia: [place] block. Complications: None. Implants: None. Estimated Blood Loss: 3 cc. Indication For Procedure: Ernie is a 54-year-old male presented to my clinic with signs, symptoms and EMG findings consistent with a left carpal tunnel syndrome. The patient failed conservative collette tment management. I discussed with the patient at length risks and benefits associated with operativ e and nonoperative treatment. He expressed understanding and elected to proceed with operative treat ment. Description Of Procedure: After informed consent was obtained, the patient was identified in the pre operative holding area. The left upper extremity was marked. The patient was then taken to the oper ating room, transferred to the operating table in supine fashion, and placed under [place] block anesthe selina. The left upper extremity was then prepped and draped in usual sterile fashion. A time-out was initiated. The correct patient and procedure were confirmed and identified. The patient did receive his preoperative prophylactic antibiotics. Approximately 3 cm incision was made just ulnar to the t henar crease. Dissection was then taken down to the palmar fascia where a [place] elevator was placed just deep to the palmar fascia to protect the median nerve at all times. A 15 blade was then used to release the palmar fascia as well as the transverse carpal ligament in a distal to proximal fashion with [place] elevator protecting the median at all times. Any remaining fascial bands of the transvers e carpal ligament were then released using a blunt tip Metzenbaum scissors with the tips aimed superf icially to again protect the median nerve at all times. After all remaining fascial bands were relea sed, there was good overall exposure of median nerve. The wound was then irrigated thoroughly with n ormal saline and skin was approximated using a #5 Prolene. Sterile dressings were applied. Tourniqu et was let down. The patient was awakened and transferred to PACU in stable condition. Postoperative Plan: The patient will be nonweightbearing to left upper extremity. He may begin work ing on range of motion exercises. He will follow up in 1 week for wound check and suture removal. CV/MODL Voice ID: [id number] Report ID: [id number]
== END 2020-02-16 13:10 | disposition home or self-care (01) ==
LOC: OR 08:11
PROVIDERS: ATTEND Orthopaedic Surgery Sports Medicine
PROC: 01N50ZZ Release Median Nerve, Open Approach (ICD-10-PCS; principal; 2020-02-16 10:45)
DX: G56.02 Carpal tunnel syndrome, left upper limb (principal); G47.30 Sleep apnea, unspecified; J45.20 Mild intermittent asthma, uncomplicated; K21.9 Gastro-esophageal reflux disease without esophagitis; Z20.828 Contact with and (suspected) exposure to other viral communicable diseases; Z82.49 Family history of ischemic heart disease and other diseases of the circulatory system; Z80.1 Family history of malignant neoplasm of trachea, bronchus and lung
CPT/HCPCS: 93005; 85025; 80048; 36415; 85610; 85730; 71046; 64721; U0002; J2704 ×2; J2250; J3010; J0690; J7120 ×2; J2405